=== PATIENT | female | born 1995 | race Caucasian/White ===

== ENCOUNTER 2017-04-27 09:06 | Emergency (ER) | payer OTHER ==
[~2017-04-27] VITALS: Ht 162.6 cm; Wt 66.0 kg
[2017-04-27 09:08] VITALS: BP 134/80; PULSE 108; RESP 20; TEMP 98.6; O2SAT 99
[2017-04-27] MEDS ORDERED: SPIR50TA PO (09:36)
[2017-04-27] MEDS ORDERED: DOXY1CAP91 PO (09:36)
[2017-04-27] MEDS ORDERED: KETOROLAC TROMETHAMINE 30 MG/ML (IVP) VIAL IV PUSH ONE (10:15)
[2017-04-27] MEDS ORDERED: SODIUM CHLOR 0.9% 1000 ML INJ 1,000 ML IV ONE (10:15)
[2017-04-27] MEDS ORDERED: ONDANSETRON HCL 4 MG/2 ML VIAL IV PUSH ONE (10:15)
--- NOTE | 2017-04-27 10:41 | PD ---
HPI Chief Complaint: GI Complaint Time Seen by Provider: 09:55 Travel History International Travel<30 days: No Contact w/Intl Traveler<30days: No Traveled to known affect area: No History of Present Illness HPI This is a 21-year-old female who presents to the emergency department with onset of nausea vomiting and diarrhea that started this morning around 4 AM. 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 She started to feel lightheaded like she was given a pass out and then subsequently had vomiting. In the past 48 hours she says she's had about 10 loose stools, nonbloody. She says she's had some subjective fevers and chills. Her abdomen is cramping, diffuse, moderate severity. She just got off a cruise one week ago where they went to the [facility] [place] [facility]. Her family was sick with upper respiratory symptoms but no one has had diarrhea or vomiting. She also works in the hospital. Was on doxycycline for her face but completed it 2 weeks ago. [facility] Past Medical History Medical other: Yes (hypersuvativa) ?: Not LMP: 04/26/17 Past Surgical History Surgical History: No Previous Surgery Social History Alcohol Use: No Tobacco Use: No Substance Use: No Allergies-Medications (Allergen,Severity, Reaction): Coded Allergies: No Known Allergies (Unverified , 04/27/17) Reported Meds & Prescriptions Reported Meds & Active Scripts Active Reported Doxycycline (Doxycycline (Monohydrate)) 100 Mg Cap 100 Mg PO DAILY Spironolactone 50 Mg Tab 50 Mg PO BID Review of Systems Except as stated in HPI: all other systems reviewed are Neg Physical Exam Narrative GENERAL:Well appearing, no acute distress SKIN: Focused skin assessment warm and dry. Pale. HEAD: Atraumatic. Normocephalic. EYES: Pupils equal and round. No injection or drainage. ENT: Dry mucous membranes. NECK: Trachea midline. CARDIOVASCULAR: Regular rate and rhythm. No murmur appreciated. RESPIRATORY: Clear to auscultation. Breath sounds equal bilaterally. GASTROINTESTINAL: Abdomen soft, tender to palpitation in the left upper and left lower quadrant with no rebound/guarding, no tenderness to deep palpation in the right lower quadrant. MUSCULOSKELETAL: No obvious deformities. NEUROLOGICAL: Awake and alert. No obvious cranial nerve deficits. Moving all extremities. PSYCHIATRIC: Appropriate mood and affect; insight and judgment normal. Data Data Last Documented VS Vital Signs Date Time Temp Pulse Resp B/P Pulse Ox O2 Delivery O2 Flow Rate FiO2 04/27/17 09:08 98.6 108 20 134/80 99 Room Air Orders Complete Blood Count With Diff (04/27/17 10:10) Comprehensive Metabolic Panel (04/27/17 10:10) ^ Insert Iv (04/27/17 10:10) Sodium Chlor 0.9% 1000 Ml Inj (Ns 1000 M (04/27/17 10:15) Ketorolac Inj (Toradol Inj) (04/27/17 10:15) Ondansetron Inj (Zofran Inj) (04/27/17 10:15) Ed Urine Pregnancytest Poc (04/27/17 10:10) Labs Laboratory Tests Test 04/27/17 10:15 White Blood Count 16.3 TH/MM3 Red Blood Count 4.52 MIL/MM3 Hemoglobin 12.4 GM/DL Hematocrit 36.4 % Mean Corpuscular Volume 80.6 FL Mean Corpuscular Hemoglobin 27.5 PG Mean Corpuscular Hemoglobin 34.2 % Concent Red Cell Distribution Width 13.7 % Platelet Count 214 TH/MM3 Mean Platelet Volume 9.0 FL Neutrophils (%) (Auto) 87.3 % Lymphocytes (%) (Auto) 5.7 % Monocytes (%) (Auto) 6.6 % Eosinophils (%) (Auto) 0.3 % Basophils (%) (Auto) 0.1 % Neutrophils # (Auto) 14.2 TH/MM3 Lymphocytes # (Auto) 0.9 TH/MM3 Monocytes # (Auto) 1.1 TH/MM3 Eosinophils # (Auto) 0.0 TH/MM3 Basophils # (Auto) 0.0 TH/MM3 CBC Comment DIFF FINAL Differential Comment Sodium Level 142 MEQ/L Potassium Level 3.8 MEQ/L Chloride Level 107 MEQ/L Carbon Dioxide Level 28.5 MEQ/L Anion Gap 7 MEQ/L Blood Urea Nitrogen 12 MG/DL Creatinine 0.65 MG/DL Estimat Glomerular Filtration 116 ML/MIN Rate Random Glucose 96 MG/DL Calcium Level 8.7 MG/DL Total Bilirubin 0.3 MG/DL Aspartate Amino Transf 16 U/L (AST/SGOT) Alanine Aminotransferase 18 U/L (ALT/SGPT) Alkaline Phosphatase 52 U/L Total Protein 7.2 GM/DL Albumin 3.9 GM/DL MDM Medical Decision Making Medical Screen Exam Complete: Yes Emergency Medical Condition: Yes Interpretation(s) Afebrile, tachycardic, normotensive Leukocytosis 87% neutrophils Electrolytes are reassuring Differential Diagnosis Viral gastroenteritis, appendicitis, colitis, dehydration, traveler's diarrhea Narrative Course This is a 21-year-old female who presents to the emergency department with nausea vomiting and diarrhea. She is tender to palpation mostly in the left abdomen with no focal tenderness on the right. She does have a leukocytosis on labs. She was given a liter of IV fluid, Toradol and Zofran. She just recently got off a cruise. I suspect she has traveler's diarrhea. We had along conversation regarding the risks versus benefits of CT imaging and she agrees to defer CT imaging at this time but if she feels worse she'll return to the emergency department at which time we'll consider further testing. We also discussed the risks versus benefits of ciprofloxacin. I did advise her that it increases her risk of tendon rupture but it would be indicated and traveler's diarrhea. She will take the prescription and if she doesn't feel better in a day or 2 she will fill it. Diagnosis Primary Impression: Travelers' diarrhea Patient Instructions: General Instructions Departure Forms: Tests/Procedures, Work Release Enter return to work date: Apr 30, 2017 Additional Instructions: If you develop lightheadedness, dizziness, persistent vomiting, inability to eat , or severe abdominal pain return to the emergency department. Followup with your primary care physician in 2-3 days if your symptoms have not resolved. Wash your hands agressively after using the restroom as to not spread your illness to others. Do not return to work until your symptoms have resolved. Take Zofran as needed for nausea. Med/Other Pt SpecificInfo: Prescription(s) given Scripts Ciprofloxacin 500 Mg [id number] Mg PO BID 3 Days Prov:Norah Diallo MD 04/27/17 Disposition: 01 DISCHARGE HOME Condition: Stable Norah Diallo MD Apr 27, 2017 10:41
[2017-04-27 10:42] LABS: AUTOMATED NEUTROPHIL # 14.2 TH/MM3 (1.8-7.7); BASOPHIL % 0.1 % (0.0-2.0); EOSINOPHIL % 0.3 % (0.0-4.0); HEMATOCRIT 36.4 % (35.0-46.0); HEMO FLAGS DIFF FINAL; LYMPH % 5.7 % (9.0-44.0); LYMPHOCYTE # 0.9 TH/MM3 (1.0-4.8); MEAN CELL VOLUME 80.6 FL (80.0-100.0); MEAN CORPUSCULAR HEMOGLOBIN 27.5 PG (27.0-34.0); MEAN CORPUSCULAR HGB CONC 34.2 % (32.0-36.0); MONO % 6.6 % (0.0-8.0); NEUT % 87.3 % (16.0-70.0); PLATELET COUNT 214 TH/MM3 (150-450); RED BLOOD COUNT 4.52 MIL/MM3 (4.00-5.30); RED CELL DISTRIBUTION WIDTH 13.7 % (11.6-17.2); WHITE BLOOD COUNT 16.3 TH/MM3 (4.0-11.0)
[2017-04-27 11:06] LABS: ALT (GPT) 18 U/L (9-42); ANION GAP 7 MEQ/L (5-15); AST (GOT) 16 U/L (16-38); BICARBONATE 28.5 MEQ/L (21.0-32.0); BLOOD UREA NITROGEN 12 MG/DL (7-18); CHLORIDE 107 MEQ/L (98-107); GLOMERULAR FILTRATION RATE 116 ML/MIN (>89); POTASSIUM 3.8 MEQ/L (3.5-5.1); SODIUM (NA) 142 MEQ/L (136-145)
[2017-04-27 11:09] LABS: ALKALINE PHOSPHATASE 52 U/L (45-117); TOTAL BILIRUBIN ADULT 0.3 MG/DL (0.2-1.0)
[2017-04-27] MEDS ORDERED: CIPR500T2 PO (11:23)
[2017-04-27] MEDS ORDERED: ZOFR4TAB3 SL (11:24)
[2017-04-27 11:35] VITALS: BP 122/78; PULSE 96; RESP 16; O2SAT 99
== END 2017-04-27 11:45 | disposition home or self-care (01) ==
LOC: NEPE 09:06
DX: R19.7 Diarrhea, unspecified (principal); R11.2 Nausea with vomiting, unspecified
CPT/HCPCS: 80053; 84703; 85025; 96361; 96374; 96375; 99284; J1885; J2405; J7030